=== PATIENT | female | born 1960 | race African-American/Black ===

== ENCOUNTER 2017-11-12 12:39 | Emergency (ER) | payer BC ==
[~2017-11-12] VITALS: Ht 167.6 cm; Wt 70.0 kg
[2017-11-12] MEDS ORDERED: IBUPROFEN 600MG TABLET PO ONE (18:00)
[2017-11-12 18:05] VITALS: BP 131/58
== END 2017-11-12 18:36 | disposition home or self-care (01) ==
LOC: ER 14:45
DX: M25.561 Pain in right knee (principal); M13.861 Other specified arthritis, right knee; W01.0XXA Fall on same level from slipping, tripping and stumbling without subsequent striking against object, initial encounter
CPT/HCPCS: 73560; 99284; Z7610